=== PATIENT | male | born 1970 | race Caucasian/White ===

== ENCOUNTER 2019-02-26 06:00 | Outpatient (RCR) | payer OTHER, SELFPAY | END 2019-03-28 00:01 | LOC: MPT 06:00 | PROVIDERS: Family Provider Family Medicine; Visit Provider Nurse Practitioner Family | DX: M54.16 Radiculopathy, lumbar region (principal) | CPT/HCPCS: 97110 ×6; 97140 ×2; G0283 ×6 ==

== ENCOUNTER 2019-03-29 09:12 | Outpatient (RCR) | payer OTHER, SELFPAY | END 2019-04-28 23:59 | disposition home or self-care (01) | LOC: SPT 09:12 | PROVIDERS: Family Provider Family Medicine; PCP Family Medicine; Visit Provider Nurse Practitioner Family | DX: M54.16 Radiculopathy, lumbar region (principal) | CPT/HCPCS: 97032; 97110; 97140 ==

== ENCOUNTER 2019-08-08 06:00 | Outpatient (RCR) | payer OTHER, SELFPAY | END 2019-08-27 23:59 | disposition home or self-care (01) | LOC: MPT 06:00 | PROVIDERS: PCP Family Medicine; Referring Provider Physical Medicine & Rehabilitation; Visit Provider Physical Medicine & Rehabilitation | DX: M54.5 Low back pain (principal) | CPT/HCPCS: 97110; 97140; 97161; G0283 ==

== ENCOUNTER 2019-08-28 06:00 | Outpatient (RCR) | payer OTHER, SELFPAY | END 2019-09-26 23:59 | disposition home or self-care (01) | LOC: MPT 06:00 | PROVIDERS: PCP Family Medicine; Visit Provider Physical Medicine & Rehabilitation | DX: M54.16 Radiculopathy, lumbar region (principal) | CPT/HCPCS: 97110; 97140; G0283 ==

== ENCOUNTER 2019-12-07 07:30 | Outpatient (RCR) | payer OTHER, BC, SELFPAY | END 2019-12-08 10:00 | disposition home or self-care (01) | LOC: SPT 07:30 | PROVIDERS: PCP Family Medicine; Referring Provider Physical Medicine & Rehabilitation; Visit Provider Physical Medicine & Rehabilitation | DX: Z47.89 Encounter for other orthopedic aftercare (principal) | CPT/HCPCS: 97750 ==

== ENCOUNTER → 2020-08-28 09:38 | Outpatient (BNVA) | payer OTHER, BC, SELFPAY | PROVIDERS: PCP Family Medicine; Referring Provider Nurse Practitioner Family; Visit Provider Nurse Practitioner Family | DX: I10 Essential (primary) hypertension (principal); R53.83 Other fatigue | CPT/HCPCS: 80053; 80061; 82043; 83690; 84443; 85025 ==

== ENCOUNTER → 2021-01-08 11:51 | Outpatient (BNVA) | payer OTHER, BC, SELFPAY | PROVIDERS: PCP Family Medicine; Visit Provider Nurse Practitioner Family | DX: E78.5 Hyperlipidemia, unspecified (principal); Z72.0 Tobacco use | CPT/HCPCS: 80061 ==

== ENCOUNTER → 2021-05-16 10:45 | Outpatient (BNVA) | payer BC, SELFPAY | PROVIDERS: PCP Family Medicine; Visit Provider Nurse Practitioner Family | DX: Z72.0 Tobacco use (principal); E78.2 Mixed hyperlipidemia; I10 Essential (primary) hypertension; G89.21 Chronic pain due to trauma; M51.16 Intervertebral disc disorders with radiculopathy, lumbar region; Z12.5 Encounter for screening for malignant neoplasm of prostate | CPT/HCPCS: 80053; 80061; 83721; 84153; 85025; G0103 ==

== ENCOUNTER → 2021-06-20 10:56 | Outpatient (BNVA) | payer BC, SELFPAY | PROVIDERS: PCP Family Medicine; Visit Provider Nurse Practitioner Family | DX: E78.2 Mixed hyperlipidemia (principal); I10 Essential (primary) hypertension; E78.5 Hyperlipidemia, unspecified | CPT/HCPCS: 80053; 80061 ==

== ENCOUNTER → 2022-02-23 10:14 | Outpatient (BNVA) | payer BC, SELFPAY | PROVIDERS: PCP Family Medicine; Visit Provider Family Medicine | DX: I10 Essential (primary) hypertension (principal); M51.16 Intervertebral disc disorders with radiculopathy, lumbar region; G89.21 Chronic pain due to trauma; M77.8 Other enthesopathies, not elsewhere classified; G89.29 Other chronic pain; R51.9 Headache, unspecified; G47.00 Insomnia, unspecified; K21.9 Gastro-esophageal reflux disease without esophagitis | CPT/HCPCS: 73030 ==

== ENCOUNTER → 2022-05-25 10:20 | Outpatient (BNVA) | payer BC, SELFPAY | PROVIDERS: PCP Family Medicine; Visit Provider Family Medicine | DX: M51.16 Intervertebral disc disorders with radiculopathy, lumbar region (principal); I10 Essential (primary) hypertension; E78.2 Mixed hyperlipidemia; G47.00 Insomnia, unspecified; G89.21 Chronic pain due to trauma; G89.29 Other chronic pain; R51.9 Headache, unspecified; K21.9 Gastro-esophageal reflux disease without esophagitis; G47.01 Insomnia due to medical condition; M77.8 Other enthesopathies, not elsewhere classified | CPT/HCPCS: 80053; 80061 ==

== ENCOUNTER → 2022-12-21 11:59 | Outpatient (BNVA) | payer BC, SELFPAY | PROVIDERS: PCP Family Medicine; Visit Provider Family Medicine | DX: R74.8 Abnormal levels of other serum enzymes; F10.90 Alcohol use, unspecified, uncomplicated | CPT/HCPCS: 80053; 86705; 86706; 86709; 86803; 87340 ==

== ENCOUNTER 2023-01-01 08:31 | Outpatient (CLI) | payer BC, SELFPAY ==
--- NOTE | 2023-01-01 08:45 | US_ITS ---
WS: [id number] Complete ABDOMINAL ULTRASOUND HISTORY: R74.8 - Abnormal levels of other serum enzymes COMPARISON: None available. Liver: 19.8 cm in length. Moderate hepatomegaly and hepatic steatosis. No mass identified. The entire liver is not well penetrated. Portal Vein: Normal hepatopetal flow with monophasic waveform. Gallbladder: Normally distended gallbladder with no stones or wall thickening. CBD: 0.2 cm Pancreas: Head and tail are obscured by bowel gas. The remaining pancreas is normal. Right kidney: 12.0 cm x 5.9 x 5.1 cm. Cortex:1.4 cm. Normal size kidney. Exophytic simple cyst from the lower pole measures 3.2 x 4.1 x 3.0 cm. No hydrone phrosis. Left kidney: 12.5 cm x 5.1 cm x 5.2 cm. Cortex: 1.3 cm. Normal size kidney. No obstruction. Exophytic cortical cyst measures 1.0 x 0.9 x 0.8 cm. Spleen: 12.7 cm in length. Aorta and IVC: Unremarkable abdominal aorta and IVC. Impression: 1. Moderate paramidline hepatic steatosis. 2. Negative gallbladder. 3. Bilateral renal cysts. No renal obstruction.
== END 2023-01-01 08:32 | disposition home or self-care (01) ==
LOC: RAD 08:34
PROVIDERS: PCP Family Medicine; Visit Provider Family Medicine
DX: F10.90 Alcohol use, unspecified, uncomplicated (principal); R74.8 Abnormal levels of other serum enzymes; N28.1 Cyst of kidney, acquired
CPT/HCPCS: 76700

== ENCOUNTER 2023-02-16 14:00 | Outpatient (CLI) | payer BC, SELFPAY | END 2023-02-16 14:01 | disposition home or self-care (01) | LOC: SLEEP 02-22 10:12 | PROVIDERS: PCP Family Medicine; Visit Provider Family Medicine | DX: G47.33 Obstructive sleep apnea (adult) (pediatric) (principal); G47.10 Hypersomnia, unspecified; R06.83 Snoring | CPT/HCPCS: G0399 ==

== ENCOUNTER → 2023-09-13 11:06 | Outpatient (BNVA) | payer BC, SELFPAY | PROVIDERS: PCP Family Medicine; Visit Provider Family Medicine | DX: Z12.5 Encounter for screening for malignant neoplasm of prostate (principal); I10 Essential (primary) hypertension; E78.2 Mixed hyperlipidemia | CPT/HCPCS: 80053; 80061; G0103 ==

== ENCOUNTER → 2024-03-13 11:03 | Outpatient (BNVA) | payer BC, SELFPAY | PROVIDERS: PCP Family Medicine; Visit Provider Family Medicine | DX: I10 Essential (primary) hypertension (principal); K76.9 Liver disease, unspecified | CPT/HCPCS: 80053; 85025; 85610 ==

== ENCOUNTER → 2024-09-11 11:14 | Outpatient (BNVA) | payer BC, SELFPAY | PROVIDERS: PCP Family Medicine; Visit Provider Family Medicine | DX: Z12.5 Encounter for screening for malignant neoplasm of prostate (principal); I10 Essential (primary) hypertension; E78.2 Mixed hyperlipidemia; K70.0 Alcoholic fatty liver | CPT/HCPCS: 80053; 80061; G0103 ==

== ENCOUNTER → 2025-03-12 09:52 | Outpatient (BNVA) | payer BC, SELFPAY | PROVIDERS: PCP Family Medicine; Visit Provider Family Medicine | DX: I10 Essential (primary) hypertension (principal) | CPT/HCPCS: 80053; 85025 ==